=== PATIENT | male | born 1995 | race Caucasian/White ===

== ENCOUNTER 2017-08-30 15:31 | Emergency (ER) | payer MEDICAID ==
[2017-08-30 15:39] VITALS: BP 120/72
[2017-08-30] MEDS ORDERED: LIDOCAINE 1% INJ-PF (10 MG/ML) 30 ML SDV INJ ONE (15:49)
--- NOTE | 2017-08-30 15:57 | ER Document Report ---
HPI - HPI Pain Level: 4 Notes: Patient is a 22-year-old male with no significant past medical history presents to the ED complaining of an injury to his nose while working on a weed [employer] prior to arrival. Patient states that a metal bar hit him from the underside of his nose causing pain and a cut to his upper lip just inferior to his nose. Patient states that the laceration does not go through and he has had the bleeding controlled without any difficulties. He reports that his tetanus is up -to-date within the last 2 years. Patient states that he has no difficulties breathing through his nose. He did not lose consciousness. Denies any drug allergies. Patient does admit to smoking but denies IV drug use. No other concerns or complaints today. Denies any headache, fever, neck pain, URI, sore throat, chest pain, palpitations, syncope, cough, shortness of breath, wheeze, dyspnea, abdominal pain, nausea/vomiting/diarrhea, urinary retention, dysuria, hematuria, or rash. - ROS Systems Reviewed and Negative: Yes All other systems reviewed and negative Past Medical History - Social History Smoking Status: Current Every Day Smoker Family History: Reviewed & Not Pertinent Vertical Provider Document - CONSTITUTIONAL Agree With Documented VS: Yes Notes: PHYSICAL EXAMINATION: accompanied by female nurse GENERAL: Well-appearing, well-nourished and in no acute distress. A&Ox4. Answers questions appropriately. HEAD: Atraumatic, normocephalic. Non-tender EYES: Pupils equal round and reactive to light, extraocular movements intact, sclera anicteric, conjunctiva are normal. No raccoon eyes/entrapment ENT: EAC clear b/l. TM's intact b/l without erythema, fluid, or perforation. Nares patent and without discharge. oropharynx clear without exudates. No tonsilar hypertrophy or erythema. Moist mucous membranes. No sinus tenderness. CSF discharge. + tenderness to the nasal bone. + 1.5cm irregular , superficial laceration noted with 0.2cm width. NECK: Normal range of motion, supple without lymphadenopathy. No rigidity. No midline tenderness. LUNGS: Breath sounds clear to auscultation bilaterally and equal. No wheezes rales or rhonchi. HEART: Regular rate and rhythm without murmurs, rubs, gallops. NEUROLOGICAL: Cranial nerves grossly intact. Normal speech, normal gait. Normal sensory, motor exams. PSYCH: Normal mood, normal affect. SKIN: see above. Warm, Dry, normal turgor, no rashes or lesions noted. - INFECTION CONTROL TRAVEL OUTSIDE OF THE [place] IN LAST 30 DAYS: No Course - Re-evaluation Re-evalutation: 08/30/17 16:20 Patient is an afebrile, well-hydrated, 22-year-old male who presents to the ED with a contusion of his nose as well as a small superficial laceration inferior to his nose superior to his upper lip as noted in the chart. Vitals are acceptable. PE is otherwise unremarkable for any focal neurological deficits, neurovascular compress, obvious fracture/dislocation. X-ray was unremarkable for any acute pathology. Wound was thoroughly irrigated and cleansed. Wound edges approximated appropriately utilizing 3 simple interrupted sutures of 6-0 Vicryl. Patient tolerated procedure well without any complications. Wound dressing placed and wound instructions reviewed. Recommend conservative measures for symptoms. Recheck with your PCM in 2-3 days. Consider consult with ENT for ongoing/worsening symptoms. Return to the ED with any worsening/ concerning symptoms otherwise as reviewed discharge. Patient is in agreement. - Vital Signs Vital signs: Temp Pulse Resp BP Pulse Ox 97.9 F 84 16 120/72 100 08/30/17 15:38 08/30/17 15:38 08/30/17 15:38 08/30/17 15:38 08/30/17 15:38 Procedures - Laceration/Wound Repair Face Time completed: 16:20 Wound length (cm): 1.5 Wound's Depth, Shape: Superficial, Irregular Laceration pre-procedure: Sterile PPE donned, Sterile drapes applied, Other - chlorhexadine Volume Anesthetic (mLs): 4 Wound explored: Clean, No foreign body removed Irrigated w/ Saline (mLs): 60 Wound Debrided: none Wound Repaired With: Sutures Suture Size/Type: 6:0, Vicryl Number of Sutures: 3 Layer Closure?: No Adult Head Front/Back picture: 1 - 1.5cm irregular superficial lac Discharge - Discharge Clinical Impression: Laceration of face Qualifiers: Encounter type: initial encounter Qualified Code(s): S01.81XA - Laceration without foreign body of other part of head, initial encounter Injury of nose Qualifiers: Encounter type: initial encounter Qualified Code(s): S09.92XA - Unspecified injury of nose, initial encounter Condition: Stable Disposition: HOME, SELF-CARE Instructions: Antibiotic Ointment Protection ([facility]), Laceration Care ([facility]), Soap Cleansing ([facility]) Additional Instructions: Do not shower or bathe for 24 hours. After 24 hours you may shower but no submersion of the wound under water. Keep the original dressing on the wound for 24 hours unless the drainage soaks through. Change the dressing daily thereafter and keep the knots of the suture material clean from any dried discharge. You may leave the wound open to the air once there is no more discharge. Return to the ED and/or your PCM in 2-3 days for a recheck. Monitor for any signs of worsening pain or redness, purulent drainage, streaks, and/or fever. Return to the ED if noticing any of the above symptoms or as needed. Your sutures are absorbable and should take care of themselves. You may notice a small piece sticking out which you may remove/cut carefully if prevalent after 5-7 days. Referrals: DEBORA JOYNER DO [ASSOCIATE] - Follow up as needed
--- NOTE | 2017-08-30 16:19 | RADIOLOGY REPORT (SQ) ---
EXAM DESCRIPTION: NOSE/NASAL BONES COMPLETED DATE/TIME: 08/30/2017 4:07 pm REASON FOR STUDY: injury to nose COMPARISON: None. NUMBER OF VIEWS: Three view. TECHNIQUE: Images of the facial bones acquired. LIMITATIONS: None. FINDINGS: ORBITS: No fracture. No foreign body. SINUSES: No mucosal thickening. No air fluid levels. FACIAL BONES: No fracture. OTHER: No other significant finding. IMPRESSION: NO FOREIGN BODY OR FRACTURE OF THE FACIAL BONES. TECHNICAL DOCUMENTATION: JOB ID: [id number] [employer]- All Rights Reserved Reading location - IP/workstation name: [email or web address]
== END 2017-08-30 16:28 | disposition home or self-care (01) ==
LOC: ER 15:31
DX: S01.81XA Laceration without foreign body of other part of head, initial encounter (principal); W22.8XXA Striking against or struck by other objects, initial encounter; Y93.89 Activity, other specified; Y99.0 Civilian activity done for income or pay; F17.200 Nicotine dependence, unspecified, uncomplicated
CPT/HCPCS: 99283; 70160; 12011; J3490